=== PATIENT | female | born 1985 | race Two or more races ===

== ENCOUNTER 2020-02-14 19:05 | Emergency (ER) | payer MEDICAID ==
[~2020-02-14] VITALS: Ht 157.5 cm; Wt 98.4 kg
[~2020-02-14 19:05] MED LIST: COLACE100 MG PO; MAC100 PO; MOT800 PO; NORCO1 TA2 PO
[2020-02-14 19:12] VITALS: Ht 157.5 cm; Wt 98.4 kg
[2020-02-14 19:59] LABS: microscopic required? NO
[2020-02-14 20:08] LABS: UA SPECIFIC GRAVITY 1.025 (1.005-1.035); urine erythrocyte NEGATIVE (NEGATIVE)
[2020-02-14 20:09] LABS: BASOPHIL % 0 % (0-2); PLATELET COUNT 235 x10^3mcL (130-400); RED CELL DISTRIBUTION WIDTH 15.3 % (11.5-14.5)
[2020-02-14 20:26] LABS: CALCIUM 8.9 mg/dL (8.5-10.1); CHLORIDE SERUM 104 mmol/L (98-107); CREATININE SERUM 0.7 mg/dL (0.6-1.0); GFR1 > 60 mL/min; GLUCOSE SERUM 86 mg/dL (74-106); SODIUM SERUM 139 mmol/L (136-145)
[2020-02-14 20:28] LABS: AMPHETAMINE QUAL UR NONE DETECTED (See below)
[2020-02-14 20:32] LABS: ALKALINE PHOSPHATASE 113 U/L (46-116); ALT/SGPT 76 U/L (14-59); AST/SGOT 49 U/L (15-37); BILIRUBIN TOTAL 0.62 mg/dL (0.20-1.00); CHOLESTEROL 156 mg/dL (<200); HDL CHOLESTEROL 40 mg/dL (40-60); LIPASE 97 IU/L (73-393)
[2020-02-14 20:55] LABS: TOTAL PROTEIN, SERUM 8.6 g/dL (6.4-8.2)
[2020-02-14 22:00] VITALS: BP 137/69
== END 2020-02-14 22:00 | disposition home or self-care (01) ==
LOC: ED 19:05
PROVIDERS: Emergency Medicine
DX: R07.89 Other chest pain (principal); I10 Essential (primary) hypertension; E66.01 Morbid (severe) obesity due to excess calories; Z68.39 Body mass index [BMI] 39.0-39.9, adult; R42 Dizziness and giddiness; Z90.89 Acquired absence of other organs; Z98.890 Other specified postprocedural states
CPT/HCPCS: 36415; 83880; 85378; Q0092